=== PATIENT | male | born 1990 | race African-American/Black ===

== ENCOUNTER 2020-09-03 08:14 | Emergency (ER) | payer OTHER ==
[~2020-09-03] VITALS: Ht 175.3 cm; Wt 81.6 kg
--- NOTE | 2020-09-03 08:24 | NUR ---
ARRIVAL PT ARRIVED TO ED WITH C/O VOMITTING CLEAR/GREEN, NAUSEA FOR 2 DAYS. LLQ PAIN WITH PALPATION. LAST BM THIS AM AND OF NORMAL CONSISTENCY. BEDSIDE MONITORS APPLIED. VITAL SIGNS STABLE. BED IN LOW LOCKED POSITION.
[2020-09-03 08:31] VITALS: BP 137/88
[2020-09-03] MEDS ORDERED: ZOFRAN IV STA (08:43)
[2020-09-03] MEDS ORDERED: TORADOL IV STA (08:43)
[2020-09-03] MEDS ORDERED: TORADOL ONE ×2 (08:45)
[2020-09-03] MEDS ORDERED: ZOFRAN ONE (08:45)
--- NOTE | 2020-09-03 08:45 | ER.PDOC ---
General Chief Complaint: Nausea,Vomiting,Diarrhea Stated Complaint: VOMITING Time seen by MD: 08:42 Source: patient Exam Limitations: no limitations History of Present Illness Initial Comments Nausea, vomiting and abdominal pain since yesterday. No fever or chills. No diarrhea. Severity/Quality: moderate Abdominal Pain Onset Location: Other (left abdommen) Associated Symptoms (vomiting): mild vomiting Allergies: Coded Allergies: No Known Allergies (Unverified , 09/03/20) Vital Signs First Vital Signs Date Time Temp Pulse Resp B/P (MAP) Pulse Ox O2 Delivery O2 Flow Rate FiO2 09/03/20 08:31 99.0 78 16 137/88 (104) 98 Room Air Last Vital Signs Date Time Temp Pulse Resp B/P (MAP) Pulse Ox O2 Delivery O2 Flow Rate FiO2 09/03/20 08:31 99.0 78 16 09/03/20 08:31 98 09/03/20 08:31 137/88 (104) Room Air Past Medical History Medical History: no pertinent history Surgical History: no surgical history Family History Significant Family History: no pertinent family hx Social History Smoking: non-smoker, greater than 1 pack/day Alcohol Use: occassionally Drug Use: none Constitutional: no symptoms reported EENTM: no symptoms reported Respiratory: no symptoms reported Cardiovascular: no symptoms reported Gastrointestinal: see HPI Musculoskeletal: no symptoms reported All Other Systems: Reviewed and Negative Physical Exam General Appearance: No Apparent Distress, WD/WN Neck: Non-Tender, Full Range of Motion, Supple, Normal Inspection Respiratory: chest non-tender, lungs clear, normal breath sounds, no respiratory distress, no accessory muscle use Cardiovascular: Normal Peripheral Pulses, Regular Rate, Rhythm, No Edema, No Gallop, No JVD, No Murmur Gastrointestinal: Normal Bowel Sounds, No Organomegaly, No Pulsatile Mass, Tenderness (Left abdomen) Back: Normal Inspection, No CVA Tenderness, No Vertebral Tenderness Extremities: Normal Range of Motion, Non-Tender, Normal Inspection, No Pedal Edema, No Calf Tenderness, Normal Capillary Refill, Pelvis Stable 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, No Motor/Sensory Deficits, Alert, Normal Mood/Affect, Oriented x 3 Skin: Normal Color, Warm/Dry Lymphatic: No Adenopathy Results/Orders Results/Orders Orders - MARTY EDWARDS MD Cbc With Auto Diff (09/03/20 08:43) Comprehensive Metabolic Panel (09/03/20 08:43) Lipase (09/03/20 08:43) Ct Abd/Pel With Iv Contrast (09/03/20 08:43) Urinalysis (09/03/20 08:43) Ondansetron Hcl/Pf (Zofran) (09/03/20 08:43) Ketorolac Tromethamine (Toradol) (09/03/20 08:43) Vital Signs Date Time Temp Pulse Resp B/P (MAP) Pulse Ox O2 Delivery O2 Flow Rate FiO2 09/03/20 08:31 99.0 78 16 09/03/20 08:31 99.0 78 16 98 09/03/20 08:31 99.0 78 16 137/88 (104) 98 Room Air Administered Medications Medications (Trade) Dose Ordered Sig/Casey Route PRN Reason Start Time Stop Time Status Last Admin Dose Admin Ketorolac Tromethamine (Toradol) 30 mg STAT STAT IV 09/03/20 08:43 09/03/20 08:44 UNV 09/03/20 09:05 30 MG Ondansetron HCl (Zofran) 4 mg STAT STAT IV 09/03/20 08:43 09/03/20 08:44 UNV 09/03/20 09:05 4 MG Laboratory Tests Test 09/03/20 08:50 09/03/20 08:59 White Blood Count 3.9 10^3/uL (4.5-11.0) L Red Blood Count 4.94 10^6/uL (4.50-5.90) Hemoglobin 13.9 g/dL (13.9-16.3) Hematocrit 42.3 % (37.0-53.0) Mean Corpuscular Volume 85.6 fL (78-100) Mean Corpuscular Hemoglobin 28.1 pg (26-34) Mean Corpuscular Hemoglobin Concent 32.9 g/dL (33-36.5) L Red Cell Distribution Width 13.3 % (11.5-14.5) Platelet Count 209 10^3/uL (150-400) Mean Platelet Volume 10.4 fL (7.8-11.0) Neutrophils (%) (Auto) 57.0 % (41.0-85.0) Lymphocytes (%) (Auto) 30.6 % (24.0-44.0) Monocytes (%) (Auto) 10.1 % (5.0-12.0) Neutrophils # (Auto) 2.2 10^3/uL (1.8-7.7) Lymphocytes # (Auto) 1.18 10^3/uL1 (1.0-4.8) Monocytes # (Auto) 0.4 10^3/uL (0.3-0.8) Absolute Immature Granulocyte (auto 0 10^3 u/L (0-2) Absolute Eosinophils (auto) 0.1 10^3/uL (0.0-0.2) Immature Granulocytes % 0.00 % (0.00-0.50) Eosinophils % 1.3 % (0.0-5.0) Basophils % 1.0 % (0.0-0.2) H Basophils # 0.0 10^3/uL (0.0-0.1) Sodium Level 140 mmol/L (132-145) Potassium Level 3.6 mmol/L (3.6-5.2) Chloride Level 105.0 mmol/L (96-109) Carbon Dioxide Level 23.7 mmol/L (20.0-32) Anion Gap 14.9 Blood Urea Nitrogen 16 mg/dL (7-18) Creatinine 1.13 mg/dL (0.59-1.40) Estimated GFR () 92.8 (>/=60) Est GFR (CKD-EPI)(Non-Afr [place]) 76.7 (>/=60) BUN/Creatinine Ratio 14.0 Glucose Level 100 mg/dL (70-110) Calcium Level 8.9 mg/dL (8.4-10.5) Total Bilirubin 0.3 mg/dL (0.2-1.0) Aspartate Amino Transferase (AST) 13 U/L (0-35) Alanine Aminotransferase (ALT) 23 U/L (12-78) Alkaline Phosphatase 56 U/L (50-136) Total Protein 7.1 g/dL (6.4-8.2) Albumin 3.8 g/dL (3.4-5.0) Globulin 3.3 Albumin/Globulin Ratio 1.151 Lipase 194 U/L (114-286) Urine Collection Type UNKNOWN Urine Color YELLOW Urine Appearance CLEAR Urine Bilirubin NEGATIVE (NEGATIVE) Urine Ketones NEGATIVE (NEGATIVE) Urine Specific [place] >=1.030 (1.005-1.030) Urine pH 5.5 (4.5-8.0) Urine Protein NEGATIVE (NEGATIVE) Urine Urobilinogen 0.2 E.U./dL (0.2) Urine Nitrate NEGATIVE (NEGATIVE) Urine Leukocyte Esterase NEGATIVE (NEGATIVE) Urine Glucose (Auto)(UA) NEGATIVE (NEGATIVE) Urine Blood NEGATIVE (NEGATIVE) Progress Progress CT abdomen pelvis shows no acute abnormality. Patient is feeling better and his nausea and pain resolved. Reviewed labs and CT finding with the patient. She voiced understanding. ER DEPART Departure Time of Disposition: 09:46 Disposition: 01 HOME / SELF CARE / HOMELESS Impression: Primary Impression: Abdominal pain Additional Impression: Nausea & vomiting Condition: Improved Referrals: PCP,UNKNOWN (PCP) PRIMARY CARE PROVIDER Additional Instructions: Zofran Start feeding with clear liquids and advance diet as tolerated Follow-up with your PCP in 2 to 3 days Return to ED if worsening symptoms or concerns Duration or Time Spent with Pa: 60 min Problem Qualifiers Primary Impression: Abdominal pain Abdominal location: unspecified location Qualified Codes: R10.9 - Unspecified abdominal pain Additional Impression: Nausea & vomiting Vomiting type: unspecified Vomiting Intractability: intractable Qualified Codes: R11.2 - Nausea with vomiting, unspecified MARTY EDWARDS MD Sep 03, 2020 08:45
[2020-09-03 08:56] LABS: EOSINOPHIL # 0.1 10^3/uL (0.0-0.2); EOSINOPHIL % 1.3 % (0.0-5.0); LYMPHOCYTES # 1.18 10^3/uL1 (1.0-4.8); LYMPHOCYTES % 30.6 % (24.0-44.0); MEAN CORP HGB 28.1 pg (26-34); MONOCYTES # 0.4 10^3/uL (0.3-0.8); MONOCYTES % 10.1 % (5.0-12.0); NEUTROPHIL # 2.2 10^3/uL (1.8-7.7); RED CELL DISTRIBUTION WIDTH 13.3 % (11.5-14.5)
[2020-09-03 09:10] LABS: CALCIUM 8.9 mg/dL (8.4-10.5); CARBON DIOXIDE 23.7 mmol/L (20.0-32)
[2020-09-03 09:16] LABS: BILIRUBIN,URINE NEGATIVE (NEGATIVE); UA COLOR YELLOW; UROBILINOGEN,URINE 0.2 E.U./dL (0.2)
--- NOTE | 2020-09-03 09:39 | DIREP ---
PROCEDURE:CT ABDOMEN/PELVIS W/ CONTRAST COMPARISON:None. INDICATIONS:Left abdominal pain TECHNIQUE:Axial images were created through the abdomen and pelvis with non-ionic intravenous contrast material. No oral contrast was administered. Sagittal and coronal reconstructions were performed from source images. FINDINGS: LUNG BASES:Normal. No visible pulmonary or pleural disease. LIVER:Normal. No significant liver lesions are identified. BILIARY:Normal. No visible dilatation or calcification. PANCREAS:Normal. No lesion, fluid collection, ductal dilatation, or atrophy. SPLEEN:Normal. No enlargement or focal lesion. ADRENALS:Normal. No mass or enlargement. URINARY TRACT:Normal. No focal lesions or hydronephrosis. AORTA/VASCULAR:Normal. No aneurysm. RETROPERITONEUM:Normal. No mass or adenopathy. BOWEL/MESENTERY:Normal. There is no intestinal obstruction, free fluid, free air or mesenteric inflammatory changes. Normal appendix. ABDOMINAL WALL:Normal. No mass or hernia. PELVIC ORGANS:Normal. No visible mass. Pelvic organs appropriate for patient age. BONES:Normal for age. No bony lesion or acute fracture. OTHER:Negative. CONCLUSION:Normal study. No acute abnormalities are seen in the abdomen and pelvis. Dictated by: Jessee Lewis M.D. on 09/03/2020 at 09:36 AM
[2020-09-03 10:07] VITALS: BP 144/95
== END 2020-09-03 10:08 | disposition home or self-care (01) ==
LOC: ER 08:14
DX: R10.9 Unspecified abdominal pain (principal); R11.2 Nausea with vomiting, unspecified; Z59.0 Homelessness
CPT/HCPCS: 36415; 74177; 80053; 81003; 83690; 85025; 96374; 96375; 99285; J1885 ×2; J2405; Q9965